=== PATIENT | male | born 1975 | race Caucasian/White ===

== ENCOUNTER 2020-04-30 18:24 | Emergency (ER) | payer OTHER, MEDICAID ==
[~2020-04-30] VITALS: Ht 170.2 cm; Wt 104.3 kg
[2020-04-30] MEDS ORDERED: TRAZ-219 PO (19:00)
[2020-04-30] MEDS ORDERED: QUET50TA22 PO (19:00)
[2020-04-30] MEDS ORDERED: [UNRECOGNIZED DRUG - CODE] PO (19:00)
[2020-04-30] MEDS ORDERED: ZOLP10TA6 PO (19:00)
[2020-04-30] MEDS ORDERED: BENZ1TAB8 PO (19:00)
[2020-04-30] MEDS ORDERED: ISON300T19 PO (19:00)
[2020-04-30] MEDS ORDERED: BENA20TA9 PO (19:00)
[2020-04-30] MEDS ORDERED: BUSP10TA3 PO (19:00)
[2020-04-30] MEDS ORDERED: ARIP20TA PO (19:00)
[2020-04-30] MEDS ORDERED: TOPI50CA6 PO (19:00)
[2020-04-30 19:01] VITALS: BP_SYST 126
[2020-04-30] MEDS ORDERED: ALBMDI INH (19:01)
[2020-04-30] MEDS ORDERED: D-ME473S17 PO (19:01)
[2020-04-30] MEDS ORDERED: PYRI-6 PO (19:01)
--- NOTE | 2020-04-30 19:05 | NUR ---
PATIENT IN HALLWAY WITH SEIZURE PRECAUTIONS AWAITING BED ASSIGNMENT
--- NOTE | 2020-04-30 19:07 | NUR ---
# 20 gauge angiocath placed to LAC. Use of asceptic technique. Opsite placed over site. Blood return noted. Blood for lab drawn from site. Flushed with 10 cc of normal saline. No evidence of infiltration noted. Patient tolerated well.
--- NOTE | 2020-04-30 19:25 | NUR ---
ER Dr. Soria at bedside examining patient.
[2020-04-30] MEDS ORDERED: levETIRAcetam 500 MG IV PREMIX 100 ML IV ONE (20:15)
[2020-04-30 20:20] LABS: BASOPHILS % (AUTO) 0.4 % (0.0-2.0); EOSINOPHILS # (AUTO) 0.2 K/uL (0.0-0.4); EOSINOPHILS % (AUTO) 2.3 % (0.0-4.0); HEMATOCRIT 50.3 % (36-54); HEMOGLOBIN 16.6 g/dL (14.0-18.0); LYMPHOCYTES # (AUTO) 2.4 K/uL (1.0-5.5); MEAN CORPUSCULAR HEMOGLOBIN 33 pg (27-31); MEAN CORPUSCULAR HGB CONC 33 % (32-36); MEAN CORPUSCULAR VOLUME 101 fL (79.0-98.0); MONOCYTES # (AUTO) 0.8 K/uL (0.0-1.0); MONOCYTES % (AUTO) 9.5 % (1.7-9.3); NEUTROPHILS # (AUTO) 4.9 K/uL (1.8-7.7); NEUTROPHILS % (AUTO) 58.8 % (40.0-70.0); PLATELET COUNT (AUTO) 256 K/uL (130-430); RED CELL DISTRIBUTION WIDTH 13.2 % (9.0-15.0); WHITE BLOOD COUNT (AUTO) 8.4 K/uL (4.8-10.8)
[2020-04-30 20:23] LABS: CREATININE 1.41 mg/dL (0.55-1.30); POTASSIUM 3.1 mmol/L (3.5-5.1)
[2020-04-30 20:28] LABS: TOTAL BILIRUBIN 0.2 mg/dL (0.0-1.0)
--- NOTE | 2020-04-30 20:55 | NUR ---
pt to room 6 in [facility], side rails up. pads in use. pt is responsive verbally to verbal stimuli. VSS
[2020-04-30] MEDS ORDERED: POTASSIUM CHLORIDE 20 MEQ/PKT PACKET PO ONE (22:00)
[2020-04-30 22:56] LABS: BARBITURATE, URINE NEGATIVE (NEG <=200); BENZODIAZEPINE, URINE NEGATIVE (NEG <=150); CANNABINOID, URINE NEGATIVE (NEG <=50); COCAINE, URINE NEGATIVE (NEG <=150); METHAMPHETAMINES SCREEN,URINE NEGATIVE (NEG <=500); OPIATE, URINE NEGATIVE (NEG <=100); PHENCYCLIDINE SCREEN,URINE NEGATIVE (NEG <=25); UR TRICYCLIC ANTIDEPRESSANTS POSITIVE (NEG <=300); URINE AMPHETAMINE NEGATIVE (NEG <=500); URINE METHADONE NEGATIVE (NEG <=200); URINE OXYCODONE SCREEN NEGATIVE (NEG <=100); URINE PROPOXYPHENE SCREEN NEGATIVE (NEG <=300)
--- NOTE | 2020-04-30 23:09 | NUR ---
pt alert and oriented. no seizure activity noted. No distress and VSS
[2020-05-01 00:06] VITALS: BP_SYST 128
== END 2020-05-01 00:06 | disposition home or self-care (01) ==
LOC: SED 18:24
DX: G40.909 Epilepsy, unspecified, not intractable, without status epilepticus (principal); E87.6 Hypokalemia; I10 Essential (primary) hypertension; Z79.899 Other long term (current) drug therapy
CPT/HCPCS: 36415; 80053; 80307; 85025; 96365; 99284; J1953